=== PATIENT | female | born 1985 | race Caucasian/White ===

== ENCOUNTER 2018-01-04 14:36 | Emergency (ER) | payer OTHER, MEDICAID, SELFPAY ==
[2018-01-04 14:37] VITALS: BP 131/82; PULSE 90; RESP 16; TEMP 36.8; O2SAT 94; BMI 28.3
[2018-01-04] MEDS: Diphth,Pertuss(Acell),Tet Vac 0.5 ML Vial IM (15:18)
--- NOTE | 2018-01-04 15:21 | ED.VISSUMM ---
- ER Visit Summary Date of Service: 01/04/18 Chief Complaint: Finger injury History of Present Illness: The patient is a 32 F who cut her right ring finger at the PIP joint on the dorsal aspect on a tinfoil cutting blade. This happened on the job. Unknown last tetanus. Physical Examination: Afebrile vital signs are stable There is a 2 cm J-shaped laceration over the dorsum of the PIP joint of the right ring finger. I can visualize a small amount of tendon which does not appear injured and I cannot visualize the joint capsule which appears uninjured. Neurovascular intact distally. Emergency Department Course and Treatment: This was updated. Wound was locally anesthetized using 1% lidocaine. Is washed with Shur-Clens and explored. It was irrigated. Wound was closed using a total of 5 4-0 simple interrupted Ethilon sutures. [facility] Impression: 1. 2 cm right ring finger laceration with repair 2. Tetanus update This note was generated with [email or web address] dictation software. It may contain incorrect words, spelling, and punctuation that were not noted in review of the chart prior to signing ED Disposition - Plan for ED Patient: Disposition: Home or Assisted Living Chief Complaint: Laceration Instructions: ED Laceration Hand Prescriptions: Cephalexin [Keflex] 500 mg PO BID #14 cap Referrals: Lamberto Matamoros MD [Primary Care Provider] - [facility]YSICIANS] - 10-14 Days suture removal Additional Instructions: Stitches will need to be removed in 10-14 days. Antibiotic ointment twice daily as discussed Keep wound dressed and covered and dry at work Return if any worsening or concerns or signs of infection
--- NOTE | 2018-01-04 15:25 | ED.DCSUM_ITS ---
- ER Visit Summary Date of Service: 01/04/18 Chief Complaint: Finger injury History of Present Illness: The patient is a 32 F who cut her right ring finger at the PIP joint on the dorsal aspect on a tinfoil cutting blade. This happened on the job. Unknown last tetanus. Physical Examination: Afebrile vital signs are stable There is a 2 cm J-shaped laceration over the dorsum of the PIP joint of the right ring finger. I can visualize a small amount of tendon which does not appear injured and I cannot visualize the joint capsule which appears uninjured. Neurovascular intact distally. Emergency Department Course and Treatment: This was updated. Wound was locally anesthetized using 1% lidocaine. Is washed with Shur-Clens and explored. It was irrigated. Wound was closed using a total of 5 4-0 simple interrupted Ethilon sutures. [facility] Impression: 1. 2 cm right ring finger laceration with repair 2. Tetanus update This note was generated with [employer] dictation software. It may contain incorrect words, spelling, and punctuation that were not noted in review of the chart prior to signing ED Disposition - Plan for ED Patient: Disposition: Home or Assisted Living Chief Complaint: Laceration Instructions: ED Laceration Hand Prescriptions: Cephalexin [Keflex] 500 mg PO BID #14 cap Referrals: Lamberto Matamoros MD [Primary Care Provider] - [facility] [GROUP OF PHYSICIANS] - 10-14 Days suture removal Additional Instructions: Stitches will need to be removed in 10-14 days. Antibiotic ointment twice daily as discussed Keep wound dressed and covered and dry at work Return if any worsening or concerns or signs of infection
[2018-01-04 15:56] VITALS: PULSE 88; RESP 16
== END 2018-01-04 15:57 | disposition home or self-care (01) ==
PROVIDERS: Emergency Provider Emergency Medicine; Family Provider Family Medicine; PCP Family Medicine
DX: S61.214A Laceration without foreign body of right ring finger without damage to nail, initial encounter (principal); W26.8XXA Contact with other sharp object(s), not elsewhere classified, initial encounter; Y93.9 Activity, unspecified; Y92.9 Unspecified place or not applicable; Y99.0 Civilian activity done for income or pay
CPT/HCPCS: 12001; 90715; 99283

== ENCOUNTER → 2019-04-11 13:38 | Outpatient (CLI) | payer MEDICAID, SELFPAY ==
[2018-01-24 17:36] VITALS: BMI 28.3
== END ==
PROVIDERS: Family Provider Family Medicine; PCP Family Medicine; Referring Provider Otolaryngology; Visit Provider Otolaryngology
DX: R05 Cough (principal)
CPT/HCPCS: 87070; 87205

== ENCOUNTER → 2021-06-09 16:58 | Outpatient (CLI) | payer OTHER, MEDICAID, SELFPAY ==
[2021-06-09 18:04] LABS: Absolute Lymphocyte Count 2.93 X10^3/uL (0.83-4.51); Absolute Neutrophil Count 5.2 X10^3/uL (2.0-7.7); Basophil# 0.06 X10^3/uL; Basophil% 0.7 % (0-1); Eosinophil# 0.27 X10^3/uL; Eosinophils% 2.9 % (0-5); Hematocrit 41.2 % (37-47); Hemoglobin 13.5 g/dL (12.0-15.0); Lymphocyte # 2.93 X10^3/ul (0.83-4.51); Mean Corp Hgb Conc 32.8 g/dL (32-36); Mean Corpuscular Hgb 30.2 pg (27.0-32.0); Mean Corpuscular Volume 92.2 fL (81-99); Mean Platelet Vol. 10.1 fl (6.2-12.0); Monocyte# 0.68 X10^3/uL; Monocyte% 7.4 % (0-10); NRBC Flagged by Analyzer 0 % (0-5); Neutrophil # 5.19 X10^3/uL (2.7-7.7); Neutrophil % 56.7 % (47-70); Platelet Count 317 K/mm3 (150-450); RBC Distribution Width CV 12.9 % (11.6-14.6); Red Blood Count 4.47 M/mm3 (4.2-5.4); White Blood Count 9.2 K/mm3 (4.4-11.0)
[2021-06-09 18:34] LABS: ALB/GLOB Ratio 0.9 RATIO (0.9-2.4); AST(SGOT) 17 U/L (15-37); Alanine Aminotransfer ALT/SGPT 26 U/L (13-56); Albumin, Serum 3.7 g/dL (3.2-5.0); Alkaline Phosphatase 48 U/L (45-117); Anion Gap 4 (5-15); BUN 17 mg/dL (7-18); BUN/Creat Ratio 26.7 RATIO (10-20); Calcium,Total 9.2 mg/dL (8.5-10.1); Chloride 106 mmol/L (98-107); Creatinine, Serum 0.64 mg/dL (0.55-1.02); EST Glomerular Filtration Rate 111 mL/min (>60); Est Glom Filt Rate - Afr Amer 134 mL/min (>60); Globulin 4.3 g/dL (2.2-4.2); Glucose 81 mg/dL (74-106); Potassium 3.7 mmol/L (3.5-5.1); Sodium Level 140 mmol/L (136-145)
[2021-06-16 00:07] LABS: QNTFERON TB Mitogen Value > 10.00 IU/mL (.); QNTFERON TB Nil Value 0.18 IU/mL (.); QNTFERON TB1+ Ag Value 0.27 IU/mL (.); QNTFERON TB2+ Ag Value 0.29 IU/mL (.)
[2021-06-16 07:57] LABS: QNTIFERON TB Positive Criteria Negative (Negative)
== END ==
PROVIDERS: PCP Family Medicine; Referring Provider Dermatology Pediatric Dermatology; Visit Provider Dermatology Pediatric Dermatology
DX: L40.0 Psoriasis vulgaris (principal); L98.8 Other specified disorders of the skin and subcutaneous tissue; Z79.899 Other long term (current) drug therapy
CPT/HCPCS: 36415; 80053; 85025; 86480

== ENCOUNTER → 2022-04-04 | Outpatient (CLI) | payer OTHER, MEDICAID, SELFPAY ==
[2022-04-07 12:08] LABS: QNTFERON TB Mitogen Value > 10.00 IU/mL (.); QNTFERON TB Nil Value 0.02 IU/mL (.); QNTFERON TB1+ Ag Value 0.02 IU/mL (.); QNTFERON TB2+ Ag Value 0.02 IU/mL (.)
[2022-04-07 15:21] LABS: Hepatitis B Core Ab Total Negative (Negative); QNTIFERON TB Positive Criteria Negative (Negative)
== END | disposition home or self-care (01) ==
LOC: MTLAB 08:57
PROVIDERS: PCP Family Medicine; Referring Provider Physician Assistant Medical; Visit Provider Physician Assistant Medical
DX: L40.0 Psoriasis vulgaris (principal); Z79.899 Other long term (current) drug therapy
CPT/HCPCS: 36415; 86480; 86704